=== PATIENT | male | born 1990 | race Caucasian/White ===

== ENCOUNTER 2017-05-14 11:40 | Emergency (ER) | payer OTHER ==
[~2017-05-14] VITALS: Ht 182.9 cm; Wt 62.1 kg
[2017-05-14 11:44] VITALS: BP 113/76
[2017-05-14] MEDS ORDERED: LIDOCAINE 2%, 20ML SQ ONE (12:30)
[2017-05-14] MEDS ORDERED: BACITRACIN ZINC OINT 500U/GM, 0.9 GM ONE (12:45)
== END 2017-05-14 12:58 | disposition home or self-care (01) ==
LOC: ED 12:35
DX: L03.012 Cellulitis of left finger (principal)
CPT/HCPCS: 10060; 99283